=== PATIENT | female | born 1965 | race Caucasian/White ===

== ENCOUNTER 2016-10-02 04:16 | Observation (INO) | payer BC, OTHER ==
[~2016-10-02] VITALS: Ht 162.6 cm; Wt 65.2 kg
[2016-10-02] VITALS (9 sets, daily range): BP systolic 130–156; BP diastolic 67–98; PULSE 68–77; RESP 15–20; TEMP 96.7–98.9; O2SAT 96–99
[2016-10-02] MEDS ORDERED: XANA1TAB2 PO (04:34)
[2016-10-02] MEDS ORDERED: SODIUM CHLORIDE 0.9% FLUSH 5 ML FLUSH IVF PRN ×3 (04:45→07:00)
--- NOTE | 2016-10-02 04:59 | PD ---
HPI Chief Complaint: Hypertension Time Seen by Provider: 04:45 Travel History International Travel<30 days: No Contact w/Intl Traveler<30days: No Traveled to known affect area: No History of Present Illness HPI 51-year-old female presents to the emergency department for complaint of headache, chest pain, and not feeling well. Patient states over the past several weeks she has been monitoring her blood pressure twice a day for the benefit of her primary care provider who is determining whether or not to start her on blood pressure medication. Patient rates chest discomfort 5/10 in intensity and radiates; head discomfort 1-2/10 in intensity. Headache is not sudden onset, not thunderclap, and not worst ever. No associated double vision blurred or loss of vision. No upper or lower extremity numbness tingling or weakness or ataxia of gait. PFSH Past Medical History Narrative Medical anxiety, breast augmentation and appendectomy; no tobacco use nursing notes reviewed Anxiety: Yes Diminished Hearing: No Tetanus Vaccination: > 5 Years Influenza Vaccination: No ?: Unknown LMP: Last week : 6 Para: 4 Miscarriage: 2 Past Surgical History Appendectomy: Yes Other Surgery: Yes (Breast augmentation) Social History Alcohol Use: Yes (Occasionally ) Tobacco Use: No Substance Use: No Allergies-Medications (Allergen,Severity, Reaction): Coded Allergies: Aspirin (Verified Allergy, Severe, 10/02/16) CONFIRM? Uncoded Allergies: ASA (Allergy, Unknown, 05/27/03) NKA (Allergy, Unknown, 05/27/03) Comments aspirin ("upsets my stomach so I avoid it" per patient) Reported Meds & Prescriptions Reported Meds & Active Scripts Active Reported Xanax (Alprazolam) 1 Mg Tab 1 Mg PO Q8H PRN Review of Systems Except as stated in HPI: all other systems reviewed are Neg General / Constitutional: No: Fever, Chills Eyes: No: Visual changes HENT: Positive: Headaches, Lightheadedness, No: Vertigo, Congestion, Neck Pain Cardiovascular: Positive: Chest Pain or Discomfort, No: Diaphoresis Respiratory: No: Shortness of Breath Gastrointestinal: Positive: Nausea, No: Vomiting, Abdominal Pain Genitourinary: No: Flank Pain Musculoskeletal: No: Myalgias, Arthralgias Skin: No Rash Neurologic: Positive: Dizziness, Headache, No: Weakness, Syncope, Focal Abnormalities, Coordination Problem, Change in Mentation, Slurred Speech, Paresthesia Psychiatric: Positive: Anxiety Hematologic/Lymphatic: No: Lymph Node Enlargement Physical Exam Narrative GENERAL: Well-developed well-nourished female in no acute distress no respiratory distress SKIN: Warm and dry. HEAD: Atraumatic. Normocephalic. EYES: Pupils equal and round. No scleral icterus. No injection or drainage. ENT: No nasal bleeding or discharge. Mucous membranes pink and moist. NECK: Trachea midline. No JVD. CARDIOVASCULAR: Regular rate and rhythm. RESPIRATORY: No accessory muscle use. Clear to auscultation. Breath sounds equal bilaterally. GASTROINTESTINAL: Abdomen soft, non-tender, nondistended. Hepatic and splenic margins not palpable. MUSCULOSKELETAL: Extremities without clubbing, cyanosis, or edema. No obvious deformities. NEUROLOGICAL: Awake and alert. No obvious cranial nerve deficits. Motor grossly within normal limits. Five out of 5 muscle strength in the arms and legs. No pronator drift. No limb ataxia. Sensory exam intact. Normal speech. PSYCHIATRIC: Appropriate mood and affect; insight and judgment normal. Data Data Last Documented VS Vital Signs Date Time Temp Pulse Resp B/P Pulse Ox O2 Delivery O2 Flow Rate FiO2 10/02/16 06:00 68 18 139/83 99 Room Air 10/02/16 04:24 98.9 Orders Electrocardiogram (10/02/16 04:45) Ckmb (Isoenzyme) Profile (10/02/16 04:45) Complete Blood Count With Diff (10/02/16 04:45) Comprehensive Metabolic Panel (10/02/16 04:45) Magnesium (Mg) (10/02/16 04:45) Prothrombin Time / Inr (Pt) (10/02/16 04:45) Act Partial Throm Time (Ptt) (10/02/16 04:45) Troponin I (10/02/16 04:45) Lipase (10/02/16 04:45) Chest, Single Ap (10/02/16 04:45) Ecg Monitoring (10/02/16 04:45) Bilateral Bp Monitoring (10/02/16 04:45) Iv Access Insert/Monitor (10/02/16 04:45) Oximetry (10/02/16 04:45) Oxygen Administration (10/02/16 04:45) Sodium Chloride 0.9% Flush (Ns Flush) (10/02/16 04:45) Urinalysis - C+S If Indicated (10/02/16 04:45) Nitroglycerin Sl (Nitrostat Sl) (10/02/16 05:15) Sodium Chlor 0.9% 1000 Ml Inj (Ns 1000 M (10/02/16 05:15) Ondansetron Inj (Zofran Inj) (10/02/16 05:45) Admit Order (Ed Use Only) (10/02/16 ) ^ Saline Lock (10/02/16 06:50) Resp Oxygen Alex C Titrat 1-4 L (10/02/16 ) ^ Notify Dr: Other (10/02/16 06:50) Sodium Chloride 0.9% Flush (Ns Flush) (10/02/16 09:00) Sodium Chloride 0.9% Flush (Ns Flush) (10/02/16 07:00) Activity Bed Rest With Brp (10/02/16 06:50) Vital Signs (Adult) Q4H (10/02/16 06:50) Cardiac Rhythm .As Directed (10/02/16 06:50) ^ Notify Dr: Other .PRN (10/02/16 06:50) ^ Notify Dr. Parameters (10/02/16 06:50) Resp Oxygen Nasal Cannula (10/02/16 ) Ckmb (Isoenzyme) Profile (10/02/16 08:15) Ckmb (Isoenzyme) Profile (10/02/16 11:15) Troponin I (10/02/16 08:15) Troponin I (10/02/16 11:15) Electrocardiogram (10/02/16 08:15) Electrocardiogram (10/02/16 11:15) ^ Obtain (10/02/16 06:50) Sodium Chloride 0.9% Flush (Ns Flush) (10/02/16 07:00) Sodium Chloride 0.9% Flush (Ns Flush) (10/02/16 09:00) Nitroglycerin Sl (Nitrostat Sl) (10/02/16 07:00) Alprazolam (Xanax) (10/02/16 07:00) Labs Laboratory Tests Test 10/02/16 05:17 White Blood Count 5.8 TH/MM3 Red Blood Count 4.49 MIL/MM3 Hemoglobin 13.6 GM/DL Hematocrit 39.5 % Mean Corpuscular Volume 87.9 FL Mean Corpuscular Hemoglobin 30.3 PG Mean Corpuscular Hemoglobin 34.5 % Concent Red Cell Distribution Width 12.1 % Platelet Count 283 TH/MM3 Mean Platelet Volume 7.6 FL Neutrophils (%) (Auto) 71.2 % Lymphocytes (%) (Auto) 19.0 % Monocytes (%) (Auto) 7.3 % Eosinophils (%) (Auto) 1.7 % Basophils (%) (Auto) 0.8 % Neutrophils # (Auto) 4.2 TH/MM3 Lymphocytes # (Auto) 1.1 TH/MM3 Monocytes # (Auto) 0.4 TH/MM3 Eosinophils # (Auto) 0.1 TH/MM3 Basophils # (Auto) 0.0 TH/MM3 CBC Comment DIFF FINAL Differential Comment Prothrombin Time 10.6 SEC Prothromb Time International 1.0 RATIO Ratio Activated Partial 27.7 SEC Thromboplast Time Sodium Level 138 MEQ/L Potassium Level 3.8 MEQ/L Chloride Level 105 MEQ/L Carbon Dioxide Level 21.6 MEQ/L Anion Gap 11 MEQ/L Blood Urea Nitrogen 7 MG/DL Creatinine 0.69 MG/DL Estimat Glomerular Filtration 90 ML/MIN Rate Random Glucose 103 MG/DL Calcium Level 8.8 MG/DL Magnesium Level 2.2 MG/DL Total Bilirubin 0.7 MG/DL Aspartate Amino Transf 18 U/L (AST/SGOT) Alanine Aminotransferase 19 U/L (ALT/SGPT) Alkaline Phosphatase 63 U/L Total Creatine Kinase 98 U/L Troponin I LESS THAN 0.02 NG/ML Total Protein 7.4 GM/DL Albumin 3.8 GM/DL Lipase 82 U/L [facility] Medical Decision Making Medical Screen Exam Complete: Yes Emergency Medical Condition: Yes Medical Record Reviewed: Yes Interpretation(s) EKG: Normal sinus rhythm rate [address] elevation or injury pattern change or ectopy noted nonspecific T-wave inversion V1 V2 septally cxr: nad CBC with automated differential eyes in normal range except for 71% neutrophils by automated differential Complete metabolic panel values in normal range CK total 98, not elevated; troponin I less than 0.02, not elevated Coagulation studies: within normal limits Differential Diagnosis Hypertension, chest pain, epigastric pain, esophageal spasm, gastritis, peptic ulcer disease, pancreatitis, biliary colic, abdominal aortic aneurysm, dissection, ACS, MS, musculoskeletal pain Narrative Course Patient is on rail director IV access obtained EKG performed which reveals no acute ST elevation or injury pattern change Patient administered steroid sublingual nitroglycerin for complaint of persistent 4-5/10 subxiphoid and epigastric discomfort After one sublingual nitroglycerin discomfort has decreased to 1/10 in intensity patient refuses any further sublingual nitroglycerin Patient administered aspirin 162 mg chewed as well as Protonix and she states aspirin causes GI upset Patient aware of lab results EKG findings and chest x-ray findings and recommendation for observation admission for chest pain center protocol to which patient agrees to stay for observation; case discussed with on-call [facility] Physician Communication Physician Communication discussed with 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
[2016-10-02] MEDS ORDERED: SODIUM CHLOR 0.9% 1000 ML INJ 1,000 ML IV SCH (05:15)
[2016-10-02] MEDS ORDERED: NITROGLYCERIN 0.4 MG SL 25 TABS/BTL SL PRN ×2 (05:15→07:00)
[2016-10-02 05:25] LABS: AUTOMATED NEUTROPHIL # 4.2 TH/MM3 (1.8-7.7); BASOPHIL % 0.8 % (0.0-2.0); EOSINOPHIL # 0.1 TH/MM3 (0-0.4); EOSINOPHIL % 1.7 % (0.0-4.0); HEMATOCRIT 39.5 % (35.0-46.0); HEMO FLAGS DIFF FINAL; LYMPHOCYTE # 1.1 TH/MM3 (1.0-4.8); MEAN CELL VOLUME 87.9 FL (80.0-100.0); MEAN CORPUSCULAR HEMOGLOBIN 30.3 PG (27.0-34.0); MEAN CORPUSCULAR HGB CONC 34.5 % (32.0-36.0); MONO % 7.3 % (0.0-8.0); NEUT % 71.2 % (16.0-70.0); PLATELET COUNT 283 TH/MM3 (150-450); RED BLOOD COUNT 4.49 MIL/MM3 (4.00-5.30); RED CELL DISTRIBUTION WIDTH 12.1 % (11.6-17.2); WHITE BLOOD COUNT 5.8 TH/MM3 (4.0-11.0)
[2016-10-02 05:34] LABS: CHLORIDE 105 MEQ/L (98-107); POTASSIUM 3.8 MEQ/L (3.5-5.1); SODIUM (NA) 138 MEQ/L (136-145)
[2016-10-02 05:38] LABS: ANION GAP 11 MEQ/L (5-15); BICARBONATE 21.6 MEQ/L (21.0-32.0); BLOOD UREA NITROGEN 7 MG/DL (7-18); MAGNESIUM 2.2 MG/DL (1.5-2.5)
[2016-10-02 05:40] LABS: APTT (PATIENT) 27.7 SEC (24.3-30.1); PROTHROMBIN TIME - PATIENT 10.6 SEC (9.8-11.6)
[2016-10-02 05:41] LABS: ALT (GPT) 19 U/L (10-53); AST (GOT) 18 U/L (15-37); GLOMERULAR FILTRATION RATE 90 ML/MIN (>89)
[2016-10-02 05:43] LABS: TOTAL BILIRUBIN ADULT 0.7 MG/DL (0.2-1.0)
[2016-10-02 05:44] LABS: ALKALINE PHOSPHATASE 63 U/L (45-117)
[2016-10-02] MEDS ORDERED: ONDANSETRON HCL 4 MG/2 ML VIAL IV PUSH ONE (05:45)
[2016-10-02 05:54] LABS: CREATINE KINASE 98 U/L (26-192)
--- NOTE | 2016-10-02 06:09 | RADHPO ---
EXAM DATE/TIME: 10/02/2016 05:12 [place] COMPARISON: No previous studies available for comparison. INDICATIONS : Chest pain. MEDICAL HISTORY : None. SURGICAL HISTORY : Appendectomy. Breast augmentation ENCOUNTER: Initial ACUITY: 1 day PAIN SCORE: 5/10 LOCATION: Bilateral chest FINDINGS: A single view of the chest demonstrates the lungs to be symmetrically aerated without evidence of mas s, infiltrate or effusion. The cardiomediastinal contours are unremarkable. Osseous structures are intact. CONCLUSION: 1. No acute cardiopulmonary disease. Gage Arellano MD on October 02, 2016 at 6:08 Board Certified Radiologist. This report was verified electronically.
[2016-10-02] MEDS ORDERED: ALPRAZolam 0.25 MG TAB PO PRN (07:00)
[2016-10-02] MEDS ORDERED: ASPIRIN 81 MG CHEW TAB CHEW ONE (07:00)
[2016-10-02] MEDS ORDERED: PANTOPRAZOLE SODIUM 40 MG VIAL IV PUSH ONE (07:00)
[2016-10-02 07:23] LABS: BLOOD, URINE TRACE (NEG); GLUCOSE,URINE NEG (NEG); KETONE, URINE 40 mg/dL (NEG); NITRITE,URINE NEG (NEG); PH, URINE 5.5 (5.0-8.5)
[2016-10-02 07:27] LABS: METHOD OF COLLECTION CLEAN CATCH; URINE COLOR STRAW (YELLW/STRAW)
[2016-10-02 07:45] LABS: BACTERIA, URINE MOD /hpf; COMMENT (UR) CULTURE INDICATED; CULTURE IF INDICATED CULTURE INDICATED; RBC, URINE 0-3 /hpf (0-3); SQUAMOUS EPITHELIAL CELL URINE 0-5 /hpf (0-5)
[2016-10-02 08:49] LABS: CREATINE KINASE 84 U/L (26-192)
[2016-10-02] MEDS ORDERED: SODIUM CHLORIDE 0.9% FLUSH 5 ML FLUSH IVF SCH ×2 (09:00)
[2016-10-02 11:53] LABS: CREATINE KINASE 78 U/L (26-192)
--- NOTE | 2016-10-02 12:31 | HHI.HP ---
cc: Tracy Givens MD [facility] Service [facility] Primary Care Physician Tracy Givens MD Admission Diagnosis chest pain; HTN Diagnoses: (1) Atypical chest pain Diagnosis: Principal (2) HTN (hypertension) Diagnosis: Principal Chief Complaint: elevated blood pressure, chest tightness Travel History International Travel<30 Days: No Contact w/Intl Traveler <30 Da: No Traveled to Known Affected Are: No History of Present Illness 51-year-old female with no significant medical history aside from some recent situational stress and anxiety is admitted to chest pain center. Patient states she came to the ED yesterday because of elevated blood pressure. She states her highest blood pressure at home yesterday was 168/102. She developed symptoms around lunchtime yesterday. She admits to chest tightness and discomfort over the middle upper chest with intermittent sharp pains below the left breast. Rates the discomfort on arrival a 6/10. No radiation of pain to neck/jaws/arms/back. She also states her stomach was upset and she had a headache. Headache has resolved but patient is still nauseous. She states she had 5-8 episodes of emesis yesterday. She additionally had 2 episodes of watery diarrhea. Nitro helped relieve symptoms. She states that she has sporadic high blood pressure occurring maybe once per month, and has had similar symptoms including the chest tightness in the past with her elevated blood pressure, although states symptoms yesterday were the worst they have ever been. She states previous episodes would usually last around 12 hours and then resolve but this has lasted longer. She states her primary care physician is aware of previous episodes but has not started her on medication because it is sporadic. She has been keeping a log of blood pressures at home. She had dizziness yesterday and states she feels very weak today. She denies any blurred vision. Denies any diaphoresis, shortness of breath, or dyspnea on exertion. Denies any fevers or chills, cold or cough symptoms. Denies any hematemesis, coffee-ground emesis, melena, or hematochezia. Denies urinary symptoms. Denies any recent injuries, recent surgeries or hospitalizations in the last 3 months, hemoptysis, history of DVT or PE, estrogen use, or leg swelling. Review of Systems Constitutional: COMPLAINS OF: Dizziness, DENIES: Fever, Chills Eyes: DENIES: Blurred vision Ears, nose, mouth, throat: DENIES: Throat pain, Ear Pain, Running Nose Respiratory: DENIES: Cough, Shortness of breath Cardiovascular: COMPLAINS OF: Chest pain, DENIES: Dyspnea on Exertion, Lower Extremity Edema Gastrointestinal: COMPLAINS OF: Diarrhea, Nausea, Vomiting, DENIES: Abdominal pain, Black stools, Bloody stools Genitourinary: DENIES: Urinary frequency, Urgency, Hematuria, Dysuria Musculoskeletal: DENIES: Back pain, Neck pain Integumentary: DENIES: Rash Neurologic: COMPLAINS OF: Headache Other +generalized weakness Past Family Social History Past Medical History anxiety/stress Miscarriages 2 Past Surgical History Appendectomy Breast augmentation Reported Medications Xanax (Alprazolam) 1 Mg Tab 1 Mg PO Q8H PRN Allergies: Coded Allergies: Aspirin (Verified Allergy, Severe, 10/02/16) CONFIRM? Uncoded Allergies: ASA (Allergy, Unknown, 05/27/03) NKA (Allergy, Unknown, 05/27/03) Family History Mother: Still living at age 73, borderline hyperlipidemia. Father: of esophageal cancer at age 55, smoker. Two siblings are healthy. Social History Denies any history of cigarette smoking. Denies any history of illicit drug use. Admits to occasional alcohol use. Physical Exam Vital Signs Vital Signs Date Time Temp Pulse Resp B/P Pulse Ox O2 Delivery O2 Flow Rate FiO2 10/02/16 08:30 96.7 70 18 150/92 97 10/02/16 07:20 96 21 10/02/16 07:16 68 15 135/67 97 10/02/16 06:00 68 18 139/83 99 Room Air 10/02/16 05:30 77 18 137/72 96 Room Air 10/02/16 05:22 76 20 130/79 98 Room Air 10/02/16 05:00 69 20 144/92 97 Room Air 156/98 10/02/16 05:00 98 Room Air 10/02/16 05:00 98 Room Air 10/02/16 04:45 18 10/02/16 04:24 98.9 68 18 155/96 98 Physical Exam GENERAL: This is a well-nourished, well-developed patient, in no apparent distress. SKIN: No rashes, ecchymoses or lesions. Cool and dry. HEAD: Atraumatic. Normocephalic. EYES: No scleral icterus. No injection or drainage. NECK: Trachea midline. CHEST: No reproducible chest wall tenderness. CARDIOVASCULAR: Regular rate and rhythm without murmurs, gallops, or rubs. RESPIRATORY: Clear to auscultation. Breath sounds equal bilaterally. No wheezes , rales, or rhonchi. GASTROINTESTINAL: Abdomen soft, non-tender, nondistended. No guarding. MUSCULOSKELETAL: No lower extremity edema or calf pain bilaterally. NEUROLOGICAL: Awake and alert. Motor grossly within normal limits. Five out of 5 muscle strength in bilateral arms and legs. Normal speech. Laboratory Laboratory Tests Test 10/02/16 10/02/16 10/02/16 10/02/16 05:17 07:05 08:15 11:10 White Blood Count 5.8 Red Blood Count 4.49 Hemoglobin 13.6 Hematocrit 39.5 Mean Corpuscular Volume 87.9 Mean Corpuscular Hemoglobin 30.3 Mean Corpuscular Hemoglobin 34.5 Concent Red Cell Distribution Width 12.1 Platelet Count 283 Mean Platelet Volume 7.6 Neutrophils (%) (Auto) 71.2 Lymphocytes (%) (Auto) 19.0 Monocytes (%) (Auto) 7.3 Eosinophils (%) (Auto) 1.7 Basophils (%) (Auto) 0.8 Neutrophils # (Auto) 4.2 Lymphocytes # (Auto) 1.1 Monocytes # (Auto) 0.4 Eosinophils # (Auto) 0.1 Basophils # (Auto) 0.0 CBC Comment DIFF FINAL Differential Comment Prothrombin Time 10.6 Prothromb Time International 1.0 Ratio Activated Partial 27.7 Thromboplast Time Sodium Level 138 Potassium Level 3.8 Chloride Level 105 Carbon Dioxide Level 21.6 Anion Gap 11 Blood Urea Nitrogen 7 Creatinine 0.69 Estimat Glomerular Filtration 90 Rate Random Glucose 103 Calcium Level 8.8 Magnesium Level 2.2 Total Bilirubin 0.7 Aspartate Amino Transf 18 (AST/SGOT) Alanine Aminotransferase 19 (ALT/SGPT) Alkaline Phosphatase 63 Total Creatine Kinase 98 84 78 Troponin I LESS THAN 0.02 LESS THAN 0.02 LESS THAN 0.02 Total Protein 7.4 Albumin 3.8 Lipase 82 Urine Collection Type CLEAN CATCH Urine Color STRAW Urine Turbidity CLEAR Urine pH 5.5 Urine Specific [place] 1.005 Urine Protein NEG Urine Glucose (UA) NEG Urine Ketones 40 Urine Occult Blood TRACE Urine Nitrite NEG Urine Bilirubin NEG Urine Leukocyte Esterase NEG Urine RBC 0-3 Urine Squamous Epithelial 0-5 Cells Urine Amorphous Sediment FEW Urine Bacteria MOD Microscopic Urinalysis Comment CULTURE INDICATED Urine Collection Time 704 Date/Time Procedure Status Source Growth 10/02/16 07:05 Urine Culture Received Urine Clean Catch Pending Result Diagram: 10/02/1651610/02/16516 Imaging Chest x-ray without acute disease Assessment and Plan Assessment and Plan 51-year-old female with: Atypical chest pain/HTN: Upper chest tightness constant still present which started midday yesterday with occasional sharp pains under the left breast. Associated with stomach upset, nausea, vomiting, diarrhea, headaches, dizziness , generalized weakness. Although patient states symptoms were the worst they have ever been, she has had similar symptoms including the chest discomfort with elevated blood pressure in the past. Troponin 3 less than 0.02. EKGs 3 personally interpreted with NSR and nonspecific septal T wave inversion. No prior EKGs for comparison. BP 155/96 on arrival. -Patient received 162 mg of aspirin and nitroglycerin 1 in the ED today. -Vitals, telemetry -Zofran prn nausea -Tylenol prn DIAS -Patient's chest pain is likely due to accelerated hypertension which the patient also believes. Blood pressure is improved this morning. Most recent BP is 143/92. She likely needs to start on antihypertensive. DVT prevention: early ambulation. I discussed patient with Dr. De Jesus who has evaluated the patient and informed her to continue to keep a log of blood pressures. Patient was informed of true cardiac symptoms. Patient symptoms are likely attributed to HTN. She has no risk factors for cardiac disease, and cardiac stress test is not necessary at this time. Discharge disposition: Home in stable condition. Activity: Regular Diet: Heart healthy Medications: Prescription for Norvasc 2.5 mg daily. Follow-up: PCP within 1 week. Discussed Condition With Dr. De Jesus, attending Attending Statement The exam, history, and the medical decision-making described in the above note were completed with my assistance as the dictating practitioner. I attest that I had a [id number] encounter with the patient on the same day, and personally performed all of the history, exam, or medical decision making. I reviewed and agree with the plan. Patient with atypical chest discomfort which is resolved. Continue blood pressure management and outpatient follow-up. Discussed length with the patient patient advised worrisome symptoms to return to the emergency room. Patient will need blood pressure management. We'll prescribe norvasc . Flori Jones Oct 02, 2016 12:31 Carri De Jesus MD Oct 02, 2016 14:20
[2016-10-02] MEDS ORDERED: ONDANSETRON HCL 4 MG/2 ML VIAL IV PRN (12:45)
[2016-10-02] MEDS ORDERED: NORV2.5T PO (13:27)
--- NOTE | 2016-10-02 13:27 | HHI.DCPOC ---
Discharge Care Plan Diagnosis: (1) Atypical chest pain (2) HTN (hypertension) Your Health Problems Are: Chest Pain Goals to Promote Your Health * To prevent worsening of your condition and complications * To maintain your health at the optimal level Directions to Meet Your Goals Take your medications as prescribed Follow your dietary instruction Follow activity as directed Keep your appointments as scheduled Take your immunizations and boosters as scheduled If your symptoms worsen call your PCP, if no PCP go to Urgent Care Center or Emergency Room Smoking is Dangerous to Your Health. Avoid second hand smoke Call the 24-hour hour crisis hotline for domestic abuse at Flori Jones Oct 02, 2016 13:27 Carri De Jesus MD Oct 02, 2016 14:20
[2016-10-02] MEDS ORDERED: amLODIPine BESYLATE 5 MG TAB PO ONE (14:00)
[2016-10-02] MEDS ORDERED: PILL SPLITTER OTHER PRN (14:00)
--- NOTE | 2016-10-03 19:45 | EKG ---
Date Performed: 10/02/2016 Time Performed: 11:06:04 PTAGE: 51 years EKG: Sinus rhythm . Septal ST-T changes are nonspecific Borderline ECG PREVIOUS TRACING : 10/02/2016 08.09 DOCTOR: Adelfo Stoll Interpretating Date/Time 10/03/2016 19:38:04
--- NOTE | 2016-10-03 19:47 | EKG ---
Date Performed: 10/02/2016 Time Performed: 08:09:08 PTAGE: 51 years EKG: Sinus rhythm rSr'(V1) - probable normal variant Normal ECG PREVIOUS TRACING : 10/02/2016 04.48 DOCTOR: Adelfo Stoll Interpretating Date/Time 10/03/2016 19:39:54
--- NOTE | 2016-10-03 19:49 | EKG ---
Date Performed: 10/02/2016 Time Performed: 04:48:04 PTAGE: 51 years EKG: Sinus rhythm Normal ECG NO PREVIOUS TRACING DOCTOR: Adelfo Stoll Interpretating Date/Time 10/03/2016 19:40:47
== END 2016-10-02 15:18 | disposition home or self-care (01) ==
LOC: PHED 04:16 → PHEDA 06:53 → PH3A 08:28
PROVIDERS: ADMIT Hospitalist; ATTEND Hospitalist
DX: R07.89 Other chest pain (principal); I10 Essential (primary) hypertension; R94.31 Abnormal electrocardiogram [ECG] [EKG]; R82.99 Other abnormal findings in urine
CPT/HCPCS: 71010; 80053; 81001; 82550; 83690; 83735; 84484; 85025; 85610; 85730; 87086; 93005; 96361; 96374; 99285; C9113; G0378; J2405; J7030

== ENCOUNTER 2018-02-12 20:51 | Emergency (ER) | payer BC, OTHER ==
[~2018-02-12] VITALS: Ht 162.6 cm; Wt 55.0 kg
[~2018-02-12 20:51] MED LIST: NORV2.5T PO; XANA1TAB2 PO
[2018-02-12 20:59] VITALS: BP 197/107; PULSE 86; RESP 12; TEMP 98.6; O2SAT 99
[2018-02-12] MEDS ORDERED: ALPRAZolam 0.5 MG TAB PO ONE (21:15)
--- NOTE | 2018-02-12 21:28 | PD ---
HPI Chief Complaint: Depression Time Seen by Provider: 21:09 Travel History International Travel<30 days: No Contact w/Intl Traveler<30days: No Traveled to known affect area: No History of Present Illness HPI Patient is a 52-year-old female presenting to the emergency department under Randall act for psychiatric evaluation. Patient allegedly sent text messages to her friend stating that she could not take it anymore, and that God never give you more than can handle however she cannot handle it anymore. Patient states that her left her 3 years ago for another woman. She then began to date a man last year and he left her last week for another man who happened to be her best friend. Patient states that she was on antidepressants after her left her 3 years ago and her doctor weaned her off and she has been doing well. She has no history of suicidal ideations or attempts. She has no current plan. She reports that she had 2 glasses of wine today. She states that she went to the gym this morning trying to keep healthy and keep her spirits up but she just felt isolated and alone. Her 2 teenage daughters were with her father and she was sitting home by herself which seems to have made the issue worse. She has no physical complaints. She denies any significant past medical history. She denies any excessive or regular alcohol use, no tobacco use or illicit drug use. [facility] Past Medical History Anxiety: Yes ?: Not LMP: 12/2017 : 6 Para: 4 Miscarriage: 2 Past Surgical History Appendectomy: Yes Hysterectomy: No Other Surgery: Yes (Breast augmentation) Social History Alcohol Use: Yes (Occasionally ) Tobacco Use: No Substance Use: No Allergies-Medications (Allergen,Severity, Reaction): Coded Allergies: aspirin (Verified Adverse Reaction, Mild, Nausea/Vomiting, 02/12/18) Reported Meds & Prescriptions Reported Meds & Active Scripts Active No Active Prescriptions or Reported Medications Review of Systems Except as stated in HPI: all other systems reviewed are Neg Psychiatric: Positive: Anxiety, Depression, Suicidal Ideations Physical Exam Narrative GENERAL: Well-developed, well-nourished, alert female. Tearful, in no acute distress. SKIN: Warm and dry. HEAD: Atraumatic. Normocephalic. EYES: Pupils equal and round. No scleral icterus. No injection or drainage. ENT: No nasal bleeding or discharge. Mucous membranes pink and moist. NECK: Trachea midline. No JVD. CARDIOVASCULAR: Regular rate and rhythm. RESPIRATORY: No accessory muscle use. Clear to auscultation. Breath sounds equal bilaterally. GASTROINTESTINAL: Abdomen soft, non-tender, nondistended. Hepatic and splenic margins not palpable. MUSCULOSKELETAL: Extremities without clubbing, cyanosis, or edema. No obvious deformities. NEUROLOGICAL: Awake and alert. No obvious cranial nerve deficits. Motor grossly within normal limits. Five out of 5 muscle strength in the arms and legs. Normal speech. PSYCHIATRIC: Depressed and anxious mood and affect; insight and judgment normal. Data Data Last Documented VS Vital Signs Date Time Temp Pulse Resp B/P (MAP) Pulse Ox O2 Delivery O2 Flow Rate FiO2 02/12/18 22:33 78 16 118/71 (87) 97 Room Air 02/12/18 20:59 98.6 Orders Orders Complete Blood Count With Diff (02/12/18 21:09) Comprehensive Metabolic Panel (02/12/18 21:09) Thyroid Stimulating Hormone (02/12/18 21:09) Urinalysis - C+S If Indicated (02/12/18 21:09) Psych Screen (02/12/18 21:09) Drug Screen, Random Urine (02/12/18 21:09) Alcohol (Ethanol) (02/12/18 21:09) Salicylates (Aspirin) (02/12/18 21:09) Tylenol (Acetaminophen) (02/12/18 21:09) Alprazolam (Xanax) (02/12/18 21:15) Labs Laboratory Tests Test 02/12/18 21:15 White Blood Count 8.9 TH/MM3 Red Blood Count 5.16 MIL/MM3 Hemoglobin 15.8 GM/DL Hematocrit 47.0 % Mean Corpuscular Volume 91.1 FL Mean Corpuscular Hemoglobin 30.6 PG Mean Corpuscular Hemoglobin Concent 33.6 % Red Cell Distribution Width 14.3 % Platelet Count 359 TH/MM3 Mean Platelet Volume 8.1 FL Neutrophils (%) (Auto) 60.6 % Lymphocytes (%) (Auto) 25.6 % Monocytes (%) (Auto) 11.3 % Eosinophils (%) (Auto) 1.5 % Basophils (%) (Auto) 1.0 % Neutrophils # (Auto) 5.4 TH/MM3 Lymphocytes # (Auto) 2.3 TH/MM3 Monocytes # (Auto) 1.0 TH/MM3 Eosinophils # (Auto) 0.1 TH/MM3 Basophils # (Auto) 0.1 TH/MM3 CBC Comment DIFF FINAL Differential Comment Urine Color COLORLESS Urine Turbidity CLEAR Urine pH 5.5 Urine Specific [place] 1.002 Urine Protein NEG mg/dL Urine Glucose (UA) NEG mg/dL Urine Ketones NEG mg/dL Urine Occult Blood NEG Urine Nitrite NEG Urine Bilirubin NEG Urine Urobilinogen LESS THAN 2.0 MG/DL Urine Leukocyte Esterase NEG Urine Squamous Epithelial Cells 1 /hpf Microscopic Urinalysis Comment CULT NOT INDICATED Blood Urea Nitrogen 9 MG/DL Creatinine 0.82 MG/DL Random Glucose 95 MG/DL Total Protein 8.8 GM/DL Albumin 4.3 GM/DL Calcium Level 9.3 MG/DL Alkaline Phosphatase 58 U/L Aspartate Amino Transf (AST/SGOT) 47 U/L Alanine Aminotransferase (ALT/SGPT) 57 U/L Total Bilirubin 0.4 MG/DL Sodium Level 141 MEQ/L Potassium Level 3.7 MEQ/L Chloride Level 104 MEQ/L Carbon Dioxide Level 23.2 MEQ/L Anion Gap 14 MEQ/L Estimat Glomerular Filtration Rate 73 ML/MIN Thyroid Stimulating Hormone 3rd Gen 1.740 uIU/ML Salicylates Level 1.7 MG/DL Urine Opiates Screen NEG Acetaminophen Level LESS THAN 2.0 MCG/ML Urine Barbiturates Screen NEG Urine Amphetamines Screen NEG Urine Benzodiazepines Screen NEG Urine Cocaine Screen NEG Urine Cannabinoids Screen NEG Ethyl Alcohol Level 174 MG/DL MDM Medical Decision Making Medical Screen Exam Complete: Yes Emergency Medical Condition: Yes Interpretation(s) Laboratory Tests Test 02/12/18 21:15 White Blood Count 8.9 TH/MM3 Red Blood Count 5.16 MIL/MM3 Hemoglobin 15.8 GM/DL Hematocrit 47.0 % Mean Corpuscular Volume 91.1 FL Mean Corpuscular Hemoglobin 30.6 PG Mean Corpuscular Hemoglobin Concent 33.6 % Red Cell Distribution Width 14.3 % Platelet Count 359 TH/MM3 Mean Platelet Volume 8.1 FL Neutrophils (%) (Auto) 60.6 % Lymphocytes (%) (Auto) 25.6 % Monocytes (%) (Auto) 11.3 % Eosinophils (%) (Auto) 1.5 % Basophils (%) (Auto) 1.0 % Neutrophils # (Auto) 5.4 TH/MM3 Lymphocytes # (Auto) 2.3 TH/MM3 Monocytes # (Auto) 1.0 TH/MM3 Eosinophils # (Auto) 0.1 TH/MM3 Basophils # (Auto) 0.1 TH/MM3 CBC Comment DIFF FINAL Differential Comment Urine Color COLORLESS Urine Turbidity CLEAR Urine pH 5.5 Urine Specific [place] 1.002 Urine Protein NEG mg/dL Urine Glucose (UA) NEG mg/dL Urine Ketones NEG mg/dL Urine Occult Blood NEG Urine Nitrite NEG Urine Bilirubin NEG Urine Urobilinogen LESS THAN 2.0 MG/DL Urine Leukocyte Esterase NEG Urine Squamous Epithelial Cells 1 /hpf Microscopic Urinalysis Comment CULT NOT INDICATED Blood Urea Nitrogen 9 MG/DL Creatinine 0.82 MG/DL Random Glucose 95 MG/DL Total Protein 8.8 GM/DL Albumin 4.3 GM/DL Calcium Level 9.3 MG/DL Alkaline Phosphatase 58 U/L Aspartate Amino Transf (AST/SGOT) 47 U/L Alanine Aminotransferase (ALT/SGPT) 57 U/L Total Bilirubin 0.4 MG/DL Sodium Level 141 MEQ/L Potassium Level 3.7 MEQ/L Chloride Level 104 MEQ/L Carbon Dioxide Level 23.2 MEQ/L Anion Gap 14 MEQ/L Estimat Glomerular Filtration Rate 73 ML/MIN Thyroid Stimulating Hormone 3rd Gen 1.740 uIU/ML Salicylates Level 1.7 MG/DL Urine Opiates Screen NEG Acetaminophen Level LESS THAN 2.0 MCG/ML Urine Barbiturates Screen NEG Urine Amphetamines Screen NEG Urine Benzodiazepines Screen NEG Urine Cocaine Screen NEG Urine Cannabinoids Screen NEG Ethyl Alcohol Level 174 MG/DL Vital Signs Date Time Temp Pulse Resp B/P (MAP) Pulse Ox O2 Delivery O2 Flow Rate FiO2 02/12/18 20:59 98.6 86 12 197/107 (137) 99 Differential Diagnosis Depression versus anxiety versus stress versus suicidal ideations versus metabolic abnormality versus substance abuse versus other Narrative Course Patient is a well-appearing 52-year-old female presenting for evaluation where she made vague suicidal ideations to her friend. Patient appears anxious and tearful. Her blood pressure is elevated on arrival, she has no history of hypertension. Patient will be given Xanax for anxiety. Mental health screening discussed with the patient. Psychiatric screen ordered. Labs reviewed , no acute findings identified. Urine drug screen is negative, alcohol level is 174. Patient is resting comfortably at this time. She is medically cleared for psychiatric evaluation. Vital signs are reassessed, blood pressure has normalized. Diagnosis Primary Impression: Medical clearance for psychiatric admission Additional Impression: Acute alcohol intoxication Qualified Codes: F10.929 - Alcohol use, unspecified with intoxication, unspecified Scripts No Active Prescriptions or Reported Meds Condition: Stable Leila Eddy February 12, 2018 21:28
[2018-02-12 21:47] LABS: AUTOMATED NEUTROPHIL # 5.4 TH/MM3 (1.8-7.7); BASOPHIL # 0.1 TH/MM3 (0-0.2); EOSINOPHIL # 0.1 TH/MM3 (0-0.4); EOSINOPHIL % 1.5 % (0.0-4.0); HEMOGLOBIN 15.8 GM/DL (11.6-15.3); LYMPH % 25.6 % (9.0-44.0); LYMPHOCYTE # 2.3 TH/MM3 (1.0-4.8); MEAN CELL VOLUME 91.1 FL (80.0-100.0); MEAN CORPUSCULAR HEMOGLOBIN 30.6 PG (27.0-34.0); MEAN CORPUSCULAR HGB CONC 33.6 % (32.0-36.0); MEAN PLATELET VOLUME 8.1 FL (7.0-11.0); MONO % 11.3 % (0.0-8.0); NEUT % 60.6 % (16.0-70.0); PLATELET COUNT 359 TH/MM3 (150-450); RED BLOOD COUNT 5.16 MIL/MM3 (4.00-5.30); RED CELL DISTRIBUTION WIDTH 14.3 % (11.6-17.2); WHITE BLOOD COUNT 8.9 TH/MM3 (4.0-11.0)
[2018-02-12 21:48] LABS: BILIRUBIN, URINE NEG (NEG); BLOOD, URINE NEG (NEG); GLUCOSE,URINE NEG (NEG); KETONE, URINE NEG (NEG); NITRITE,URINE NEG (NEG); PH, URINE 5.5 (5.0-8.5); SQUAMOUS EPITHELIAL CELL URINE 1 /hpf (0-5); URINE COLOR COLORLESS (YELLW/STRAW); URINE LEUKOCYTE ESTERASE NEG (NEG)
[2018-02-12 21:58] LABS: ALBUMIN 4.3 GM/DL (3.4-5.0); AST (GOT) 47 U/L (15-37); BICARBONATE 23.2 MEQ/L (21.0-32.0); BLOOD UREA NITROGEN 9 MG/DL (7-18); CALCIUM 9.3 MG/DL (8.5-10.1); CHLORIDE 104 MEQ/L (98-107); CREATININE 0.82 MG/DL (0.50-1.00); GLOMERULAR FILTRATION RATE 73 ML/MIN (>89); GLUCOSE,RANDOM 95 MG/DL (74-106); SODIUM (NA) 141 MEQ/L (136-145)
[2018-02-12 21:59] LABS: ALT (GPT) 57 U/L (10-53)
[2018-02-12 22:09] LABS: ALKALINE PHOSPHATASE 58 U/L (45-117); TOTAL BILIRUBIN ADULT 0.4 MG/DL (0.2-1.0); TOTAL PROTEIN 8.8 GM/DL (6.4-8.2)
[2018-02-12 22:11] LABS: ACETAMINOPHEN LESS THAN 2.0 MCG/ML (10.0-30.0)
[2018-02-12 22:33] VITALS: BP 118/71; PULSE 78; RESP 16; O2SAT 97
[2018-02-13 05:55] VITALS: BP 138/78; PULSE 68; RESP 16; O2SAT 98
[2018-02-13 07:54] VITALS: BP 130/75; PULSE 75; RESP 16; TEMP 98; O2SAT 100
[2018-02-13 08:01] VITALS: BP 134/65; PULSE 77; RESP 15; TEMP 97.8; O2SAT 99
[2018-02-13 09:01] VITALS: BP 132/77; PULSE 67; RESP 15; TEMP 98; O2SAT 100
--- NOTE | 2018-02-13 10:37 | PD ---
Data Data Last Documented VS Vital Signs Date Time Temp Pulse Resp B/P (MAP) Pulse Ox O2 Delivery O2 Flow Rate FiO2 02/13/18 07:54 75 16 02/13/18 07:54 98.0 130/75 (93) 100 Room Air Orders Orders Complete Blood Count With Diff (02/12/18 21:09) Comprehensive Metabolic Panel (02/12/18 21:09) Thyroid Stimulating Hormone (02/12/18 21:09) Urinalysis - C+S If Indicated (02/12/18 21:09) Psych Screen (02/12/18 21:09) Drug Screen, Random Urine (02/12/18 21:09) Alcohol (Ethanol) (02/12/18 21:09) Salicylates (Aspirin) (02/12/18 21:09) Tylenol (Acetaminophen) (02/12/18 21:09) Alprazolam (Xanax) (02/12/18 21:15) Diet Regular Basic (02/13/18 Breakfast) Labs Laboratory Tests Test 02/12/18 21:15 White Blood Count 8.9 TH/MM3 Red Blood Count 5.16 MIL/MM3 Hemoglobin 15.8 GM/DL Hematocrit 47.0 % Mean Corpuscular Volume 91.1 FL Mean Corpuscular Hemoglobin 30.6 PG Mean Corpuscular Hemoglobin Concent 33.6 % Red Cell Distribution Width 14.3 % Platelet Count 359 TH/MM3 Mean Platelet Volume 8.1 FL Neutrophils (%) (Auto) 60.6 % Lymphocytes (%) (Auto) 25.6 % Monocytes (%) (Auto) 11.3 % Eosinophils (%) (Auto) 1.5 % Basophils (%) (Auto) 1.0 % Neutrophils # (Auto) 5.4 TH/MM3 Lymphocytes # (Auto) 2.3 TH/MM3 Monocytes # (Auto) 1.0 TH/MM3 Eosinophils # (Auto) 0.1 TH/MM3 Basophils # (Auto) 0.1 TH/MM3 CBC Comment DIFF FINAL Differential Comment Urine Color COLORLESS Urine Turbidity CLEAR Urine pH 5.5 Urine Specific [place] 1.002 Urine Protein NEG mg/dL Urine Glucose (UA) NEG mg/dL Urine Ketones NEG mg/dL Urine Occult Blood NEG Urine Nitrite NEG Urine Bilirubin NEG Urine Urobilinogen LESS THAN 2.0 MG/DL Urine Leukocyte Esterase NEG Urine Squamous Epithelial Cells 1 /hpf Microscopic Urinalysis Comment CULT NOT INDICATED Blood Urea Nitrogen 9 MG/DL Creatinine 0.82 MG/DL Random Glucose 95 MG/DL Total Protein 8.8 GM/DL Albumin 4.3 GM/DL Calcium Level 9.3 MG/DL Alkaline Phosphatase 58 U/L Aspartate Amino Transf (AST/SGOT) 47 U/L Alanine Aminotransferase (ALT/SGPT) 57 U/L Total Bilirubin 0.4 MG/DL Sodium Level 141 MEQ/L Potassium Level 3.7 MEQ/L Chloride Level 104 MEQ/L Carbon Dioxide Level 23.2 MEQ/L Anion Gap 14 MEQ/L Estimat Glomerular Filtration Rate 73 ML/MIN Thyroid Stimulating Hormone 3rd Gen 1.740 uIU/ML Salicylates Level 1.7 MG/DL Urine Opiates Screen NEG Acetaminophen Level LESS THAN 2.0 MCG/ML Urine Barbiturates Screen NEG Urine Amphetamines Screen NEG Urine Benzodiazepines Screen NEG Urine Cocaine Screen NEG Urine Cannabinoids Screen NEG Ethyl Alcohol Level 174 MG/DL MDM Medical Record Reviewed: Yes Supervised Visit with ANN: No Narrative Course See previous providers notes. This patient was previously medically cleared. She has now cleared by psychiatry and the Randall act has been lifted. She has no medical issues that would warrant further hospitalization. She is stable for discharge. Diagnosis Primary Impression: Medical clearance for psychiatric admission Additional Impression: Acute alcohol intoxication Qualified Codes: F10.929 - Alcohol use, unspecified with intoxication, unspecified Med/Other Pt SpecificInfo: No Change to Meds Scripts No Active Prescriptions or Reported Meds Disposition: DISCHARGE HOME Condition: Stable Yovany Brasher February 13, 2018 10:37
--- NOTE | 2018-02-13 10:38 | PD ---
History of Present Illness Chief Complaint: Depression Time Seen by Provider: 10:15 Travel History International Travel<30 Days: No Contact w/Intl Traveler<30days: No Known affected area: No Legal Status Legal Status: Randall Act Randall Act Signed By: LEONARDO [employer] Randall Act Comment: 2017 @ 2011 History of Present Illness: History of Present Illness HPI Patient is a 52-year-old, , female with history of depression and anxiety, no previous suicide attempts, presenting to the emergency department under Randall act for psychiatric evaluation. Patient allegedly sent text messages to her friend stating that she could not take it anymore, and that God never gives you more than you can handle however she cannot handle it anymore. Patient reports that she broke up with the relationship a week ago and that yesterday on her way to the gym she saw her ex-boyfriend's car parked at her best friend's house. She was aware that they were involved in a relationship. She admits that she had a couple of glasses of wine and does admit to having sent a message to her friend but she denies that she had any suicidal intent. She did not make any attempt at harming herself. Patient was monitor and secure environment and presented no behavioral concerns and no suicidality. EMR is reviewed. No previous contact with [facility] psychiatry. Blood alcohol level on arrival 174. Patient is seen in Main ED. ALINE Pack present during interview. The patient is alert, oriented, engaging and cooperative. There is no evidence of any thought process or content disorder. The patient does admit to feeling sad over the recent breakup. She has made an appointment already with her therapist and that appointment is for this coming . The patient denies any current suicidal ideation, intent or plan. She is future oriented and has adequate protective factors in place. She states that she would not hurt himself because of the love for her mom, her kids and her friends. PFSH Past Medical History Anxiety: Yes Diminished Hearing: No Tetanus Vaccination: Unknown Influenza Vaccination: No ?: Not LMP: 12/2017 : 6 Para: 4 Miscarriage: 2 Past Surgical History Appendectomy: Yes Hysterectomy: No Other Surgery: Yes (Breast augmentation) Psychiatric History Psychiatric History Hx Psychiatric Treatment: Patient was treated by a psychiatrist years 3 years ago on an outpatient basis. She remembers she was prescribed Xanax and 2 other medications. No previous history of suicide attempt. No history of self-injurious behavior History of Inpatient Treatment: No Guns or firearms in home: No Social History Born and raised in [place]. She was and 3 years ago. She works for an [employer] for the past 20 years. She has 4 children to adults and a 15-year-old and a 17-year-old living at home. Hx Alcohol Use: Yes (Occasionally ) Hx Tobacco Use: No Hx Substance Use: No Substance Use Type: Alcohol Other Substances Used: Denies that she drinks on a daily basis Hx of Substance Use Treatment: No Allergies-Medications (Allergen,Severity, Reaction): Coded Allergies: aspirin (Verified Adverse Reaction, Mild, Nausea/Vomiting, 02/12/18) Reported Meds & Prescriptions Reported Meds & Active Scripts Active No Active Prescriptions or Reported Medications Review of Systems Psychiatric: COMPLAINS OF: Anxiety, Depression Mental Status Examination Appearance: Appropriate Consciousness: Alert Orientation: x4 Motor Activity: Normal gait Speech: Unremarkable Language: Adequate Fund of Knowledge: Adequate Attention and Concentration: Adequate Memory: Unremarkable Mood: Appropriate, Anxious Affect: Appropriate Thought Process & Associations: Intact, Logical, Goal directed Thought Content: Appropriate Hallucination Type: None Delusion Type: None Suicidal Ideation: No Suicidal Plan: No Suicidal Intention: No Homicidal Ideation: No Homicidal Plan: No Homicidal Intention: No Insight: Adequate Judgment: Adequate [place] Medical Decision Making Medical Record Reviewed: Yes Assessment/Plan History of Present Illness HPI Patient is a 52-year-old, , female with history of depression and anxiety, no previous suicide attempts, presenting to the emergency department under Randall act for psychiatric evaluation. Patient allegedly sent text messages to her friend stating that she could not take it anymore, and that God never gives you more than you can handle however she cannot handle it anymore. Patient reports that she broke up with the relationship a week ago and that yesterday on her way to the gym she saw her ex-boyfriend's car parked at her best friend's house. She was aware that they were involved in a relationship. She admits that she had a couple of glasses of wine and does admit to having sent a message to her friend but she denies that she had any suicidal intent. She did not make any attempt at harming herself. Patient was monitor and secure environment and presented no behavioral concerns and no suicidality. The patient is requesting to be discharged and I have no grounds to keep her under the Randall act. She does not present any evidence of unstable mental illness as defined under the Randall act. She has made an appointment to see her therapist this coming . Support is provided. The Randall act will be lifted. Psychiatric clear for discharge from the ED. Orders Orders Complete Blood Count With Diff (02/12/18 21:09) Comprehensive Metabolic Panel (02/12/18 21:09) Thyroid Stimulating Hormone (02/12/18 21:09) Urinalysis - C+S If Indicated (02/12/18 21:09) Psych Screen (02/12/18 21:09) Drug Screen, Random Urine (02/12/18 21:09) Alcohol (Ethanol) (02/12/18 21:09) Salicylates (Aspirin) (02/12/18 21:09) Tylenol (Acetaminophen) (02/12/18 21:09) Alprazolam (Xanax) (02/12/18 21:15) Diet Regular Basic (02/13/18 Breakfast) Results Vital Signs Date Time Temp Pulse Resp B/P (MAP) Pulse Ox O2 Delivery O2 Flow Rate FiO2 02/13/18 07:54 75 16 02/13/18 07:54 98.0 75 16 130/75 (93) 100 Room Air 02/13/18 05:55 68 16 138/78 (98) 98 Room Air 02/12/18 22:33 78 16 118/71 (87) 97 Room Air 02/12/18 20:59 98.6 86 12 197/107 (137) 99 Laboratory Tests Test 02/12/18 21:15 White Blood Count 8.9 Red Blood Count 5.16 Hemoglobin 15.8 Hematocrit 47.0 Mean Corpuscular Volume 91.1 Mean Corpuscular Hemoglobin 30.6 Mean Corpuscular Hemoglobin Concent 33.6 Red Cell Distribution Width 14.3 Platelet Count 359 Mean Platelet Volume 8.1 Neutrophils (%) (Auto) 60.6 Lymphocytes (%) (Auto) 25.6 Monocytes (%) (Auto) 11.3 Eosinophils (%) (Auto) 1.5 Basophils (%) (Auto) 1.0 Neutrophils # (Auto) 5.4 Lymphocytes # (Auto) 2.3 Monocytes # (Auto) 1.0 Eosinophils # (Auto) 0.1 Basophils # (Auto) 0.1 CBC Comment DIFF FINAL Differential Comment Urine Color COLORLESS Urine Turbidity CLEAR Urine pH 5.5 Urine Specific [place] 1.002 Urine Protein NEG Urine Glucose (UA) NEG Urine Ketones NEG Urine Occult Blood NEG Urine Nitrite NEG Urine Bilirubin NEG Urine Urobilinogen LESS THAN 2.0 Urine Leukocyte Esterase NEG Urine Squamous Epithelial Cells 1 Microscopic Urinalysis Comment CULT NOT INDICATED Blood Urea Nitrogen 9 Creatinine 0.82 Random Glucose 95 Total Protein 8.8 Albumin 4.3 Calcium Level 9.3 Alkaline Phosphatase 58 Aspartate Amino Transf (AST/SGOT) 47 Alanine Aminotransferase (ALT/SGPT) 57 Total Bilirubin 0.4 Sodium Level 141 Potassium Level 3.7 Chloride Level 104 Carbon Dioxide Level 23.2 Anion Gap 14 Estimat Glomerular Filtration Rate 73 Thyroid Stimulating Hormone 3rd Gen 1.740 Salicylates Level 1.7 Urine Opiates Screen NEG Acetaminophen Level LESS THAN 2.0 Urine Barbiturates Screen NEG Urine Amphetamines Screen NEG Urine Benzodiazepines Screen NEG Urine Cocaine Screen NEG Urine Cannabinoids Screen NEG Ethyl Alcohol Level 174 Diagnosis Primary Impression: Acute alcohol intoxication Additional Impression: Adjustment disorder Psychiatrically Cleared: Yes Med/ Other Pt Specific Info: No Meds Exist/No RX given Prescriptions No Active Prescriptions or Reported Meds Disposition: DISCHARGE HOME Condition: Stable Problem Qualifiers Primary Impression: Acute alcohol intoxication Qualified Codes: F10.929 - Alcohol use, unspecified with intoxication, unspecified Additional Impression: Adjustment disorder Qualified Codes: F43.23 - Adjustment disorder with mixed anxiety and depressed mood Miladys Hogan February 13, 2018 10:38
[2018-02-13 11:00] VITALS: BP 130/75; TEMP 98
== END 2018-02-13 11:10 | disposition home or self-care (01) ==
LOC: NEPD 20:51
DX: F10.129 Alcohol abuse with intoxication, unspecified (principal); Y90.6 Blood alcohol level of 120-199 mg/100 ml; F43.23 Adjustment disorder with mixed anxiety and depressed mood
CPT/HCPCS: 80053; 80307; 81001; 84443; 85025; 99283

== ENCOUNTER 2018-03-07 22:53 | Emergency (ER) | payer OTHER ==
[2018-03-07 23:07] VITALS: BP 129/83; PULSE 115; RESP 18; TEMP 97.5; O2SAT 97
--- NOTE | 2018-03-08 00:14 | PD ---
HPI Chief Complaint: Alcohol/Drug Intoxication Time Seen by Provider: 23:53 Travel History International Travel<30 days: No Contact w/Intl Traveler<30days: No History of Present Illness HPI 52yo F was brought in as alcohol intoxication under Soliz's Act today. Pt said she was drinking alcohol in her house and then came out of her house and her called the police. Said she is going through a divorce and her is trying to get back at home. Denies any complaints. Denies any suicidal or homicidal ideations. Pt is AAOx3 and does not want any blood work or evaluation. She is ambulating in the ED without assistance. No signs of trauma on her. Pt is upset but cooperative. PFSH Past Medical History Anxiety: Yes Diminished Hearing: No : 6 Para: 4 Miscarriage: 2 Past Surgical History Appendectomy: Yes Hysterectomy: No Other Surgery: Yes (Breast augmentation) Social History Alcohol Use: Yes (Occasionally ) Tobacco Use: No Substance Use: No Allergies-Medications (Allergen,Severity, Reaction): Coded Allergies: aspirin (Verified Adverse Reaction, Mild, Nausea/Vomiting, 02/12/18) Reported Meds & Prescriptions Reported Meds & Active Scripts Active No Active Prescriptions or Reported Medications Review of Systems Except as stated in HPI: all other systems reviewed are Neg Physical Exam Narrative GENERAL: 52yo F not in distress. SKIN: Focused skin assessment warm/dry. HEAD: Atraumatic. Normocephalic. EYES: Pupils equal and round. No scleral icterus. No injection or drainage. ENT: No nasal bleeding or discharge. Mucous membranes pink and moist. NECK: Trachea midline. No JVD. CARDIOVASCULAR: Regular rate and rhythm. No murmur appreciated. RESPIRATORY: No accessory muscle use. Clear to auscultation. Breath sounds equal bilaterally. GASTROINTESTINAL: Abdomen soft, non-tender, nondistended. MUSCULOSKELETAL: No obvious deformities. No clubbing. No cyanosis. No edema. NEUROLOGICAL: AAOX3. No obvious cranial nerve deficits. Motor grossly within normal limits in all extremities. Sensation intact. Normal speech. Data Data Last Documented VS Vital Signs Date Time Temp Pulse Resp B/P (MAP) Pulse Ox O2 Delivery O2 Flow Rate FiO2 03/08/18 00:18 03/07/18 23:07 97.5 115 18 97 Room Air Orders Orders Ed Discharge Order (03/08/18 00:14) [facility] Medical Decision Making Medical Screen Exam Complete: Yes Emergency Medical Condition: Yes Differential Diagnosis Alcohol abuse Narrative Course 52yo was brought in as Soliz's Act for alcohol intoxication. Pt is ambulatory in the ED without assistance. Pt is AAOx3 and does not want anything done. Will lift soliz's act as pt denies any suicidal or homicidal ideations. Return precautions given. Pt called for an uber and we had a staff walk with her to her car. Diagnosis Primary Impression: Alcohol intoxication Qualified Codes: F10.920 - Alcohol use, unspecified with intoxication, uncomplicated Patient Instructions: General Instructions Departure Forms: Tests/Procedures Additional Instructions: Please follow up with your primary care physician. Return to the ED if symptoms worsen. Med/Other Pt SpecificInfo: No Change to Meds Scripts No Active Prescriptions or Reported Meds Disposition: 01 DISCHARGE HOME Condition: Stable Mulu Martini Mar 08, 2018 00:14
== END 2018-03-08 00:21 | disposition home or self-care (01) ==
LOC: NEDAMB 22:53 → NEPD 03-08 00:21
DX: F10.129 Alcohol abuse with intoxication, unspecified (principal); F41.9 Anxiety disorder, unspecified
CPT/HCPCS: 99281